=== PATIENT | male | born 1975 | race Caucasian/White ===

== ENCOUNTER 2022-08-05 13:25 | Emergency (ER) | payer OTHER, SELFPAY ==
--- NOTE | 2022-08-05 13:29 | ED.GENADULT ---
HPI - General Adult General Stated complaint: Finger lac Related Data Allergies Allergy/AdvReac Type Severity Reaction Status Date / Time No Known Allergies Allergy Unverified 06/08/20 15:08 [No Known Allergies*] Course Course Course Narrative: -C/o injury to the Left middle finger, arround noon cut it with a broad head/blade -up to date with tatanus shot -PE: 1.5 cm lac to middle finger, will need stitches
[2022-08-05 14:35] VITALS: BP 140/90; PULSE 82; RESP 18; TEMP 36.8; O2SAT 97; BMI 30.5
== END 2022-08-05 18:51 | disposition left against medical advice (07) ==
PROVIDERS: Emergency Provider Emergency Medicine; PCP Internal Medicine
DX: S61.213A Laceration without foreign body of left middle finger without damage to nail, initial encounter (principal); W27.8XXA Contact with other nonpowered hand tool, initial encounter; Y93.9 Activity, unspecified; Y92.9 Unspecified place or not applicable; Y99.9 Unspecified external cause status
CPT/HCPCS: 99281

== ENCOUNTER 2024-01-14 16:46 | Outpatient (AMB) | payer OTHER, SELFPAY ==
--- NOTE | 2024-01-14 16:48 | MHC.PC.OV ---
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 Intake Note: Patient is a new patient here to establish care for phsyical. Transferring care from Dr. Alex Granger. Medical records have not been requested and have not received. 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 HPI Details Patient comes in today for his annual physical examination and to REestablish care He was previously a patient of Dr. 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 He currently takes no regular meds or prescription meds [facility] Medical History (Updated 01/14/24 @ 18:58 by Daniel Malcolm MD) Obesity (BMI 30-39.9) Surgical History (Updated 01/14/24 @ 18:52 by Daniel Malcolm MD) Hx of vasectomy History of placement of ear tubes Family History (Updated 01/14/24 @ 18:54 by Daniel Malcolm MD) Father Coronary atherosclerosis CVA (cerebral vascular accident) Hypertension Diabetes mellitus Hyperlipidemia Social History Housing: Apartment Alcohol intake: never Patient Tobacco Use Status: Never used Tobacco e-Cigarette/Vaping Use: Never Used Second Hand Smoke Exposure: No service: No Current occupational status: employed 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 1. Little interest or pleasure in doing things: not at all 2. Feeling down, depressed, or hopeless: not at all 3. Trouble falling or staying asleep, or sleeping too much: not at all 4. Feeling tired or having little energy: not at all 5. Poor appetite or overeating: not at all 6. Feeling bad about yourself - or that you are a failure or have let yourself or your family down: not at all 7. Trouble concentrating on things, such as reading the newspaper or watching television: not at all 8. Moving or speaking so slowly that other people could have noticed. Or the opposite - being so fidgety or restless that you have been moving around a lot more than usual: not at all 9. Thoughts that you would be better off or of hurting yourself in some way: not at all Total score: 0 Depression Screening Interpretation: Negative Depression Screening Done: Yes 20721 - PHQ-9 Billing: Yes Source: Developed by Drs. Leonardo Yun, Alka Willis, Gennaro Florez and colleagues, with an educational laureano from [employer]. Thrive Questionnaire Date Thrive assessed: 01/14/24 I am a: Patient What is your living situation today?: I have a steady place to live Within the past 12 months, did the food you bought not last and you didn't have the money to get more?: Never true Within the past 12 months, did you worry whether your food would run out before you got money to buy more?: Never true Do you have trouble paying for medicines?: No Do you have trouble getting transportation to medical appointments?: No Do you have trouble paying your heating and electricity bill?: No Do you have trouble taking care of your child, family member or friend?: No Do you have trouble with day-to-day activities such as bathing, preparing meals, shopping, managing finances, etc.?: No Are you currently unemployed and looking for a job?: No Are you interested in more education?: No Currently or been in a relationship where the following occur: no concerns reported THRIVE Score: 0 AUDIT C Alcohol Use Questionnaire (AUDIT-C) 1. How often do you have a drink containing alcohol?: Never 3. How often do you have six or more drinks on one occasion?: Never Total Score: 0 Score Reviewed/Action Taken: Yes JHONY-7 AMB Questionnaire JHONY-7 Date JHONY - 7 assessed: 01/14/24 Feeling nervous, anxious, or on edge: 0 = Not at all Not being able to stop or control worryin = Not at all Worrying too much about different things: 0 = Not at all Trouble relaxin = Not at all Being so restless that it is hard to sit still: 0 = Not at all Becoming easily annoyed or irritable: 0 = Not at all Feeling afraid as if something awful might happen: 0 = Not at all Total JHONY-7 score (0-4 normal; 5-9 mild; 10-14 moderate; 15-21 severe): 0 Source: Developed by Drs. Leonardo Yun, Alka Willis, Gennaro Florez and colleagues, with an educational laureano from [employer]. Review of Systems Const Denies chills, Denies fatigue, Denies fever(s), Denies headache(s), Denies malaise and Denies weakness Eyes Denies blurry vision, Denies change in vision, Denies irritation and Denies itchy eyes ENT Denies dysphagia, Denies dizziness, Denies otalgia, Denies headache(s), Denies nasal congestion, Denies neck pain, Denies odynophagia and Denies sore throat Card Denies chest pain, Denies rapid heart rate, Denies irregular heart rhythm, Denies palpitations and Denies dyspnea Resp Denies chest congestion, Denies cough, Denies dyspnea and Denies wheezing GI Denies abdominal pain, Denies bloating, Denies constipation, Denies dysphagia, Denies heartburn, Denies diarrhea, Denies nausea, Denies odynophagia and Denies vomiting Denies hematuria, Denies difficulty urinating, Denies dysuria, Denies urinary frequency and Denies urinary urgency Musc Denies back pain, Denies arthralgias, Denies joint swelling, Denies muscle weakness and Denies neck pain Skin/Breast Denies change in pigmentation, Denies lesions, Denies rash and Denies unusual bruising Neuro Denies dizziness, Denies headache(s), Denies paresthesias and Denies weakness Endo Denies fatigue and Denies palpitations Aller/Immun Denies itchy eyes and Denies wheezing Physical exam (Primary Care) Vital Signs: Last Vital Signs Pulse 71 01/14/24 16:50 BP 110/62 01/14/24 16:50 Pulse Ox 93 01/14/24 16:50 Oxygen Delivery Method Room Air 01/14/24 16:50 BMI result Body Mass Index 32.0 Tobacco/Smoking Status: Tobacco use Status Tobacco use date assessed 01/14/24 01/14/24 16:57 Patient Tobacco Use Status Never used Tobacco 01/14/24 16:57 e-Cigarette/Vaping Use Never Used 01/14/24 16:57 PHQ-9: PHQ-9 Score PHQ-9: Total score 0 01/14/24 17:16 Depression Screening Interpretation: Negative Thrive Assessment: Date of Thrive Assessment Date Thrive assessed 01/14/24 01/14/24 16:57 Currently or been in a relationship where the following occur: no concerns reported Const General: no acute distress, alert and awake Orientation/consciousness: patient oriented x3 HENMT Head: Yes normocephalic and Yes atraumatic Ears: external ears normal, TM's normal bilaterally and EAC's normal General nose exam: No nasal discharge present Face and sinus: Yes normal facial exam and Yes sinuses nontender Teeth and gingiva: dentition normal Throat: Yes posterior oropharynx normal and Yes tonsils normal (no TP congestion) Eyes Eyelids: Yes eyelids normal Conjunctivae: conjunctivae normal Pupils: Equal, round and reactive pupils present EOM: EOMs intact bilaterally Neck Neck: Yes no lymphadenopathy and Yes supple Thyroid: Thyroid normal Resp Auscultation: clear to auscultation bilaterally, no rales and no wheezes Cardio Rate: regular rate Rhythm: regular rhythm Heart sounds: no murmurs GI Palpation (GI): Soft to palpation, nontender and No hepatosplenomegaly present Auscultation: normal bowel sounds General: Yes no CVA tenderness Back/Spine/Pelvis Back: no CVA tenderness Thoracic/Lumbar Spine: thoracic and lumbar spine normal to inspection Skin Lesions: no lesions Rashes: no rashes Neuro General: patient oriented x3, moves all extremities, no focal motor deficits and CN's II-XI intact bilaterally Cranial nerves: Yes Equal, round and reactive pupils present Cognition (Neuro): normal cognition Gait exam (Neuro): Normal gait present Extrem General: Yes no clubbing, cyanosis or edema Assessment and Plan Assessment & Plan (1) Annual physical exam: Code(s): Z00.00 - Encounter for general adult medical examination without abnormal findings Plan: Check labs - he is advised that we will check back with him if any of his lab results come back unusual or abnormal He is due for his index screening colonoscopy and will be referred for this (2) Obesity (BMI 30-39.9): Code(s): E66.9 - Obesity, unspecified Plan: Discussed diet/exercise as tolerated/lose weight (3) Colon cancer screening: Code(s): Z12.11 - Encounter for screening for malignant neoplasm of colon Plan: Will refer to GI for screening colonoscopy Plan To return in 1 year for his next annual physical examination Orders: Orders Complete Blood Count Auto Diff Today D64.9 - Anemia, unspecified, Z00.00 - Encounter for general adult medical examination without abnormal findings Comprehensive [place]. Panel Fast Today E78.00 - Pure hypercholesterolemia, unspecified, Z00.00 - Encounter for general adult medical examination without abnormal findings Lipid Panel Today E78.00 - Pure hypercholesterolemia, unspecified, Z00.00 - Encounter for general adult medical examination without abnormal findings TSH reflex Free T4 Today E78.00 - Pure hypercholesterolemia, unspecified, Z00.00 - Encounter for general adult medical examination without abnormal findings UA CC w/rflx Micro + Cult Today R30.0 - Dysuria, Z00.00 - Encounter for general adult medical examination without abnormal findings Hemoglobin A1c Today R73.01 - Impaired fasting glucose, Z00.00 - Encounter for general adult medical examination without abnormal findings Vitamin D 25-OH Total Today E55.9 - Vitamin D deficiency, unspecified, Z00.00 - Encounter for general adult medical examination without abnormal findings Referrals Gastroenterology Referral Z12.11 - Encounter for screening for malignant neoplasm of colon Coding Level of Care Code New Pt Prev Care 40-64y(37272) Diagnoses Annual physical exam Z00.00 Obesity (BMI 30-39.9) E66.9 Colon cancer screening Z12.11
[2024-01-14 16:50] VITALS: BP 110/62; PULSE 71; O2SAT 93; BMI 32.0
== END 2024-01-14 17:27 | disposition home or self-care (01) ==
PROVIDERS: PCP Internal Medicine; Visit Provider Internal Medicine
DX: Z00.00 Encounter for general adult medical examination without abnormal findings (principal); E66.9 Obesity, unspecified; Z68.32 Body mass index [BMI] 32.0-32.9, adult
CPT/HCPCS: 99386

== ENCOUNTER 2024-01-15 11:07 | Outpatient (REF) | payer OTHER, SELFPAY ==
[2024-01-15 11:26] LABS: MANUAL DIFF FLAG NO
[2024-01-15 12:34] LABS: Appearance Urine Clear; Color Urine Dark Yellow; Glucose Urine UA Negative (Negative); Leukocyte Esterase Urine Negative (Negative); Nitrite Urine Negative (Negative); PH 5.5 (5.0-9.0); Specific Gravity - Urine >= 1.030 (1.005-1.025); Urine Blood Negative (Negative); Urine Ketones Trace mg/dL (Negative); Urine Protein Negative (Neg-Trace)
[2024-01-15 12:37] LABS: Basophils Percent Auto 0.5 % (0-2); Eosinophils Absolute Auto 0.2 X10*3/uL (0.0-0.4); Eosinophils Percent Auto 3.9 % (0-4); Hematocrit 45.2 % (42.0-52.0); Hemoglobin 15.6 g/dl (14.0-18.0); Imm Gran Abs Auto 0.01 X10*3/uL (0.00-0.03); Imm Gran Pct Auto 0.2 % (0.0-0.4); Lymphocytes Absolute Auto 2.5 X10*3/uL (1.2-4.9); Lymphocytes Percent Auto 44.5 % (20-40); Mean Corpuscular HGB Conc 34.5 g/dl (31.0-36.0); Mean Corpuscular Hemoglobin 29.4 pg (27.0-33.0); Mean Corpuscular Volume 85.1 fL (80.0-98.0); Mean Platelet Volume 10.2 fL (9.4-12.4); Monocytes Absolute Auto 0.3 X10*3/uL (0.1-1.2); Monocytes Percent Auto 6.1 % (2-11); Neutrophils Absolute Auto 2.5 x10*3/uL (2.0-8.3); Neutrophils Percent Auto 44.8 % (45-73); Platelet Count 255 X10*3/uL (160-400); Red Blood Count 5.31 X10*6/uL (4.60-5.80); Red Cell Distribution Width 12.1 % (11.0-16.0); White Blood Count 5.6 X10*3/uL (4.8-10.8)
[2024-01-15 12:43] LABS: Estimated Average Glucose 111 mg/dL; Hemoglobin A1c % 5.5 % (<6.0)
[2024-01-15 14:27] LABS: Alanine Aminotransferase 23 U/L (0-40); Albumin Level 4.3 g/dL (3.5-5.0); Alkaline Phosphatase 65 U/L (39-117); Anion Gap 11 (12-20); Aspartate Amino Transferase 16 U/L (5-37); Bilirubin Total 0.9 mg/dL (0.0-1.0); Blood Urea Nitrogen 14 mg/dL (9-16); Calcium 9.6 mg/dL (8.4-10.2); Carbon Dioxide 30 mmol/L (22-29); Chloride 104 mmol/L (96-108); Cholesterol 196 mg/dL (<200); Estimated Glomerular Filt Rate > 60; Glucose Fasting 101 mg/dL (60-99); HDL Cholesterol 38 mg/dL (>40); LDL Cholesterol Calculated 115 mg/dL (<100); Potassium 4.3 mmol/L (3.3-5.1); Sodium 141 mmol/L (135-145); TSH reflex Free T4 1.06 uIU/mL (0.32-4.0); Total Protein 7.6 g/dL (6.5-8.0); Triglycerides 216 mg/dL (<150); Vitamin D 25-OH Total 25.4 ng/mL (>30)
== END 2024-01-15 11:08 | disposition home or self-care (01) ==
LOC: HO.LAB 11:07
PROVIDERS: PCP Internal Medicine; Visit Provider Internal Medicine
DX: Z00.00 Encounter for general adult medical examination without abnormal findings (principal); E55.9 Vitamin D deficiency, unspecified; R30.0 Dysuria; E78.00 Pure hypercholesterolemia, unspecified; R73.01 Impaired fasting glucose; D64.9 Anemia, unspecified
CPT/HCPCS: 36415; 80053; 80061; 81003; 82306; 83036; 84443; 85025

== ENCOUNTER 2024-10-22 08:21 | Outpatient (AMB) | payer BC, SELFPAY ==
--- NOTE | 2024-10-22 08:21 | MHC.OFFVIS ---
Intake Visit Reasons: Colonoscopy screening Intake Note: Nicolas presents as a telehealth today to have a colonoscopy screening - he has no GI concerns - just has never had a colonoscopy and PCP said that it is time. Senior Application Security Consultant Required: No Allergies No Known Allergies [No Known Allergies*] Allergy (Verified 10/22/24 08:22) HPI HPI Colonoscopy screening: Details: HPI 49 yr old m called for assessment He needs a colonoscopy, screening he did have a hx of anal fissure 3 months he noted a bump when cleaning himself but there is no pain he denies constipation, or diarrhea he has no rectal pain no abdominal pain ROS: Constitutional : No Weight loss, No Fever, No Chills ENT/Mouth : No sore throat, No Rhinorrhea Eyes: No Swelling, No Redness Cardiovascular : No Chest Pain, No SOB, No Edema Respiratory : No Cough, No Sputum, No Wheezing Gastrointestinal : see HPI Genitourinary : NO Dysuria, No Urinary Frequency, No Hematuria, No Urgency Musculoskeletal : no joint pain, No Myalgias, No Joint Swelling Skin : No Skin Lesions, No rash Neuro : No Weakness, No Numbness, No Dizziness, No Headache Psych : No Anxiety/Panic, No Depression Heme/Lymph: No Bruising, No Lymphadenopathy Endocrine : No Polyuria, No Polydipsia All other systems reviewed and are negative. 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 talking easily A/P: 1/ Colon screening PLAN: / Sent nikki schafer for [facility] Medical History (Updated 01/14/24 @ 18:58 by Daniel Malcolm MD) Obesity (BMI 30-39.9) Surgical History (Updated 10/22/24 @ 08:22 by SPARKLE Merchant) History of esophagogastroduodenoscopy (EGD) Hx of vasectomy History of placement of ear tubes Family History (Updated 01/14/24 @ 18:54 by Daniel Malcolm MD) Father Coronary atherosclerosis CVA (cerebral vascular accident) Hypertension Diabetes mellitus Hyperlipidemia Social History Housing: Apartment Alcohol intake: never Patient Tobacco Use Status: Never used Tobacco e-Cigarette/Vaping Use: Never Used Second Hand Smoke Exposure: No service: No Current occupational status: employed 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 Cognitive needs: No Hearing needs: No Vision needs: No Telehealth Telehealth Telehealth Platform: [employer] Location of provider rendering services: practice address Location of patient: address on file Patient Identification confirmed using: Name, : Yes Telehealth method: video Patient verbally consented to treatment: Yes Patient verbally consented to billing insurance company: Yes Patient informed of any privacy concerns related to visit: Yes Minutes spent on Phone/Video with Pt.: 5 Assessment & Plan Assessment & Plan (1) Colon cancer screening: Code(s): Z12.11 - Encounter for screening for malignant neoplasm of colon Category: Medical Plan: as above Medications: New sodium,potassium,mag sulfates 17.5-3.13-1.6 gram (Suprep Bowel Prep Kit) DILUTE; drink 1/2 at 6-8 pm and half at 11 PM- 1AM 354 mL 0RF Coding Level of Care Code Tele New Pt Level 4 (95987) Diagnoses Colon cancer screening Z12.11
== END 2024-10-22 09:27 | disposition home or self-care (01) ==
LOC: HO.HGI 08:21
PROVIDERS: PCP Internal Medicine; Visit Provider Internal Medicine Gastroenterology
DX: Z01.818 Encounter for other preprocedural examination (principal); Z12.11 Encounter for screening for malignant neoplasm of colon
CPT/HCPCS: S0285

== ENCOUNTER 2024-11-01 10:45 | Outpatient (AMB) | payer BC, SELFPAY ==
--- NOTE | 2024-11-01 10:53 | MHC.PC.OV ---
Vital Signs 11/01/24 10:58 Height 5 ft 6 in Weight 213 lb 2 oz BMI 34.4 BP 130/70 Blood Pressure Location Lt brachial Position Sitting Pulse 104 H Pulse Source Pulse Oximeter Temp 97.8 F Temp Source Skin Pulse Oximetry (%) 98 Oxygen Delivery Method Room Air Intake Visit Reasons: fever Intake Note: Patient is here to follow up on Fever, coughing, headache, chilled, difficulty breathing. OTC not helping. Was exposed to flu a week ago, did not test for covid or flu. 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 Accompanied by: Self / Same As Patient Allergies No Known Allergies [No Known Allergies*] Allergy (Verified 11/01/24 11:11) Medication List - Last Reconciled 11/01/24 by Catrina Miller PA-C sodium,potassium,mag sulfates 17.5-3.13-1.6 gram (Suprep Bowel Prep Kit) DILUTE; drink 1/2 at 6-8 pm and half at 11 PM- 1AM Tobacco use date assessed: 11/01/24 Dental Screening Dental Screen Date: 11/01/24 Did you have a dental visit in the last 12 months?: No Did you have a dental problem in the last 6 months where you did not have access to dental care?: No Was dental information given to patient?: Patient has dentist HPI fever HPI Details 49-year-old male with past medical history of obesity last seen 12/[address] Malcolm coming in for acute problem. Patient presenting with acute onset of systemic and respiratory symptoms consistent with influenza-like illness. Symptoms began approximately 36 hours ago, characterized by diffuse joint pain, ocular pressure, severe dry cough, and high fevers. He notes his stepson recently had a confirmed case of influenza, suggesting a potential source of infection. Despite attempts with OTC medications (NyQuil, TheraFlu), his symptoms persist, with fever reaching 104.1?F and experiencing sweats at night. 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 1. Little interest or pleasure in doing things: not at all 2. Feeling down, depressed, or hopeless: not at all 3. Trouble falling or staying asleep, or sleeping too much: not at all 4. Feeling tired or having little energy: not at all 5. Poor appetite or overeating: not at all 6. Feeling bad about yourself - or that you are a failure or have let yourself or your family down: not at all 7. Trouble concentrating on things, such as reading the newspaper or watching television: not at all 8. Moving or speaking so slowly that other people could have noticed. Or the opposite - being so fidgety or restless that you have been moving around a lot more than usual: not at all 9. Thoughts that you would be better off or of hurting yourself in some way: not at all Total score: 0 Depression Screening Interpretation: Negative Depression Screening Done: Yes Source: Developed by Drs. Leonardo Yun, Alka Willis, Gennaro Florez and colleagues, with an educational laureano from [employer]. Thrive Questionnaire Date Thrive assessed: 11/01/24 I am a: Patient What is your living situation today?: I have a steady place to live Within the past 12 months, did the food you bought not last and you didn't have the money to get more?: Never true Within the past 12 months, did you worry whether your food would run out before you got money to buy more?: Never true Do you have trouble paying for medicines?: No Do you have trouble getting transportation to medical appointments?: No Do you have trouble paying your heating and electricity bill?: No Do you have trouble taking care of your child, family member or friend?: No Do you have trouble with day-to-day activities such as bathing, preparing meals, shopping, managing finances, etc.?: No Are you currently unemployed and looking for a job?: No Are you interested in more education?: No Please select the resources that you would like help with: None Currently or been in a relationship where the following occur: No concerns reported THRIVE Score: 0 AUDIT C Alcohol Use Questionnaire (AUDIT-C) 1. How often do you have a drink containing alcohol?: Never Total Score: 0 JHONY-7 AMB Questionnaire JHONY-7 Date JHONY - 7 assessed: 11/01/24 Feeling nervous, anxious, or on edge: 0 = Not at all Not being able to stop or control worryin = Not at all Worrying too much about different things: 0 = Not at all Trouble relaxin = Not at all Being so restless that it is hard to sit still: 0 = Not at all Becoming easily annoyed or irritable: 0 = Not at all Feeling afraid as if something awful might happen: 0 = Not at all Total JHONY-7 score (0-4 normal; 5-9 mild; 10-14 moderate; 15-21 severe): 0 Source: Developed by Drs. Leonardo Yun, Alka Willis, Gennaro Florez and colleagues, with an educational laureano from [employer]. Review of Systems Const Reports body aches, Reports chills, Reports fever(s), Reports headache(s), Reports night sweats and Reports poor appetite Eyes Reports no additional complaints ENT Denies dysphagia, Denies dizziness, Reports headache(s), Denies odynophagia and Denies sore throat Card Denies chest pain, Denies lightheadedness and Denies dyspnea Resp Reports cough, Denies hemoptysis, Denies excessive phlegm production and Denies dyspnea GI Denies abdominal pain, Denies dysphagia, Denies nausea, Denies odynophagia and Denies vomiting Reports no additional complaints Musc Reports no additional complaints and Denies abnormal gait Skin/Breast Reports system reviewed and no additional complaints, except as documented Neuro Denies abnormal gait, Denies dizziness and Reports headache(s) Psych Reports no additional complaints Physical exam (Primary Care) Vital Signs: Last Vital Signs Temp 97.8 F 11/01/24 10:58 Pulse 104 H 11/01/24 10:58 BP 130/70 11/01/24 10:58 Pulse Ox 98 11/01/24 10:58 Oxygen Delivery Method Room Air 11/01/24 10:58 BMI result Body Mass Index 34.4 Tobacco/Smoking Status: Tobacco use Status Tobacco use date assessed 11/01/24 11/01/24 11:05 Patient Tobacco Use Status Never used Tobacco 11/01/24 11:05 e-Cigarette/Vaping Use Never Used 11/01/24 11:05 PHQ-9: PHQ-9 Score PHQ-9: Total score 0 11/01/24 11:05 Depression Screening Interpretation: Negative Thrive Assessment: Date of Thrive Assessment Date Thrive assessed 11/01/24 11/01/24 11:05 Currently or been in a relationship where the following occur: No concerns reported Const General: cooperative, healthy appearing, comfortable and no acute distress Orientation/consciousness: patient oriented x3 HENMT Head: Yes normocephalic Ears: hearing grossly normal bilaterally General nose exam: Normal external nose present Eyes General: appearance normal, both eyes and all related structures Conjunctivae: conjunctivae normal Neck Neck: Yes full ROM and Yes no lymphadenopathy Resp Effort & Inspection: normal respiratory effort Auscultation: clear to auscultation bilaterally, no crackles, no rales, no rhonchi and no wheezes Cardio Rate: regular rate Rhythm: regular rhythm Skin General skin exam: no rashes or lesions noted Neuro General: patient oriented x3 Gait exam (Neuro): Normal gait present Extrem General: Yes normal to inspection, Yes full ROM and No edema Psych Affect: normal affect Attitude: cooperative Insight: Good insight present (Psych) Judgement: Good judgement present (Psych) Coding Level of Care Code Est Pt Level 3 (23359) Diagnoses Obesity (BMI 30-39.9) E66.9 Upper respiratory infection J06.9 Assessment & Plan Assessment & Plan (1) Obesity (BMI 30-39.9): Code(s): E66.9 - Obesity, unspecified Category: Medical Plan: Healthy diet and regular exercise is encouraged. (2) Upper respiratory infection: Code(s): J06.9 - Acute upper respiratory infection, unspecified Category: Medical Plan: The patient will undergo a respiratory panel to confirm the etiology of his symptoms, with influenza being strongly suspected due to familial exposure. Should the flu be confirmed, Oseltamivir will be initiated to mitigate the duration and severity of symptoms. He is advised to maintain hydration and utilize acetaminophen for fever reduction. A prescription for a cough suppressant will be provided to address the unproductive cough. The patient will need a medical leave note due to his inability to work and risk of contagion, and he will monitor symptoms at home with precautions for respiratory difficulty or sustained fever. Plan Patient was informed and verbally consented to the use of an ambient scribe for clinic note documentation during this visit. This note was constructed using voice recognition software. While every effort has been made to ensure accuracy and director bioinformatics, still areas may have been included sometimes these areas may affect the content or meeting of the given symptoms. Total time spent caring for the patient today was 20 minutes. This includes time spent before the visit reviewing the chart, time spent during the visit, and time spent after the visit and documentation. Orders: Orders SARS-CoV2/FLU/RSV Today R09.89 - Other specified symptoms and signs involving the circulatory and respiratory systems Medications: New benzonatate 100 mg PO BID PRN 30 caps 0RF cough
[2024-11-01 10:58] VITALS: BP 130/70; PULSE 104; TEMP 36.6; O2SAT 98; BMI 34.4
== END 2024-11-01 11:27 | disposition home or self-care (01) ==
PROVIDERS: PCP Internal Medicine
DX: J06.9 Acute upper respiratory infection, unspecified (principal); E66.9 Obesity, unspecified; Z68.34 Body mass index [BMI] 34.0-34.9, adult

== ENCOUNTER 2024-11-01 10:45 | Outpatient (REF) | payer BC, SELFPAY ==
[2024-11-01 12:35] LABS: Influenza A PCR POSITIVE (Negative); Influenza B PCR NEGATIVE (Negative); Resp Syncy Virus RNA Qual PCR NEGATIVE (Negative); SARS COV2 PCR INHOUSE NEGATIVE (Negative)
== END 2024-11-01 10:46 | disposition home or self-care (01) ==
LOC: HO.LAB 10:45
PROVIDERS: PCP Internal Medicine
DX: R09.89 Other specified symptoms and signs involving the circulatory and respiratory systems (principal); Z13.83 Encounter for screening for respiratory disorder NEC
CPT/HCPCS: 0241U